=== PATIENT | male | born 1970 | race Caucasian/White ===

== ENCOUNTER → 2021-12-02 | Outpatient (CLI) | payer BC | LOC: KOH-I 11:07 | DX: M12.811 Other specific arthropathies, not elsewhere classified, right shoulder (principal) | CPT/HCPCS: 73200 ==

== ENCOUNTER → 2022-01-20 | Outpatient (CLI) | payer BC ==
[~2022-01-20] MED LIST: AMITRIPTYLINE100 MG PO; CETIRIZINE HCL10 MG PO; DICLOFENAC GEL 1% TOP; HYDROCHLOROTHIA25 MG PO; LISINOPRIL40 MG PO; LOPID600 MG PO; MEN'S DAILY FO1 EACH PO; METHOCARBAMOL500 MG PO; MOBIC7.5 MG PO; OMEPRAZOLE20 M1 PO; PLEXUS BIO CLEANSE PO; PLEXUS PRO BIO 5 PO; PLEXUS SLIM PO; SINGULAIR10 MG PO; TOPROL XL100 MG PO; VITAMIN D3125 MCG PO; ZOLOFT50 MG PO
[2022-01-20 10:20] LABS: HEMOGLOBIN 14.6 gm/dl (14.0-17.5); RED BLOOD COUNT 4.86 M/UL (4.20-5.50); WHITE BLOOD COUNT 7.6 K/UL (4.5-11.0)
[2022-01-20 10:51] LABS: BUN/CREATININE RATIO 20 (0-10)
== END ==
LOC: EDSTATUS 09:00 → OPSV2 09:00
PROVIDERS: Anesthesiology
DX: Z01.818 Encounter for other preprocedural examination (principal)
CPT/HCPCS: 36415; 71046; 80048; 83036; 85025; 93005

== ENCOUNTER → 2022-01-30 | Day surgery (SDC) | payer BC ==
[~2022-01-30] VITALS: Ht 177.8 cm; Wt 104.3 kg
[2022-01-30 06:48] LABS: BUN/CREATININE RATIO 18 (0-10)
== END | disposition home or self-care (01) ==
LOC: OR 05:16 → EDSTATUS 12:45
PROVIDERS: Orthopaedic Surgery
DX: M19.011 Primary osteoarthritis, right shoulder (principal); I10 Essential (primary) hypertension; E78.5 Hyperlipidemia, unspecified; K21.9 Gastro-esophageal reflux disease without esophagitis; K76.0 Fatty (change of) liver, not elsewhere classified; J45.909 Unspecified asthma, uncomplicated; Z88.6 Allergy status to analgesic agent; Z20.822 Contact with and (suspected) exposure to COVID-19
CPT/HCPCS: 36415; 73020; 80048; 86850; 86900; 86901; C1713; C1776; J0592; J0690; J1100; J2001; J2250; J2370; J2704; J2795; J3010; J7120; P9045